=== PATIENT | female | born 1960 | race Caucasian/White ===

== ENCOUNTER 2017-08-30 11:33 | Emergency (ER) | payer SELFPAY ==
[~2017-08-30 11:33] MED LIST: Sodium Chloride 0.9% 1,000 ML BAG ONE
[2017-08-30 12:04] LABS: Bilirubin Negative (Negative); Blood, Urine Moderate (Negative); Clarity Hazy (Clear); Glucose, Urine (Dipstick) Negative (Negative); Leukocyte Large (Negative); Nitrite Positive (Negative); Protein, Urine (Dipstick) 30 mg/dL (Neg-Trace); Specific Gravity, Urine 1.015 (1.005-1.030); Urobilinogen 0.2 mg/dL (0.2-1.0)
[2017-08-30 12:06] LABS: Bacteria/HPF Rare-Few HPF (None Seen); Squamous Epithelial 0-3 HPF (0-3)
[2017-08-30] MEDS ORDERED: Ondansetron HCl/PF 4 MG/2 ML Vial ONE (12:07)
[2017-08-30] MEDS ORDERED: cefTRIAXone\\ROCEPHIN 1 GM VIAL ONE (12:53)
[2017-08-30] MEDS ORDERED: Ketorolac Tromethamine 30 MG/ML VIAL ONE (13:07)
== END 2017-08-30 14:45 | disposition home or self-care (01) ==
LOC: MADERS 11:33
DX: N39.0 Urinary tract infection, site not specified (principal)
CPT/HCPCS: 81003; 81015; 87077; 87086; 87186; 96361; 96374; 96375; J0696; J1885; J2405; J7050